=== PATIENT | female | born 1965 | race Caucasian/White ===

== ENCOUNTER 2016-08-13 20:51 | Emergency (ER) | payer OTHER ==
--- NOTE | 2016-08-13 21:00 | PDOC ---
History of Present Illness - General History Source: Patient Exam Limitations: No Limitations - History of Present Illness Initial Comments: 08/13/16 21:15 A portion of this note was documented by scribe services under my direction. I have reviewed the details of the note, within reason, and agree with the documentation. The case summary and management plan written by me. Procedure note laceration repair Laceration anesthetized with 1% lidocaine no epinephrine via local infiltration into the wound margins approximately 2 mL used Laceration cleaned with saline and closed with 3 sutures of 5-0 Ethilon. Sterile dressing and bacitracin appliied. Patient became a little vasovagal at the end of the procedure so she was laying down with improvement of her symptoms. Patient discharged home with her . Patient given wound care instructions, laceration instructions and has a doctor to follow-up with for suture removal <Saul Mendoza I - Last Filed: 08/13/16 21:18> - General History Source: Patient Exam Limitations: No Limitations - History of Present Illness Initial Comments: 08/13/16 21:21 The patient is a 51 year old female presenting with her , who presents to the emergency department with a left thumb laceration. She reports that she was opening a can of corn when she cut herself on the edge of the can. She reports minimal pain from the area. She denies any other kind of injuries. She states that her last tetanus shot was 2 years ago. The patient denies any other kind of injuries. PAST MEDICAL HISTORY: no significant history PAST SURGICAL HISTORY: no significant history FAMILY HISTORY: no pertinent history SOCIAL HISTORY: Pt lives with family and is employed. MEDICATIONS: reviewed ALLERGIES: As per nursing notes <Reji Roberson - Last Filed: 08/13/16 21:23> - General Chief Complaint: Laceration Stated Complaint: LH 1ST FINGER LAC Time Seen by Provider: 08/13/16 21:00 Past History - Past Medical History Other medical history: denies - Psycho/Social/Smoking Cessation Hx Anxiety: No Suicidal Ideation: No Smoking History: Never smoked Hx Alcohol Use: (occasional) <Saul Mendoza I - Last Filed: 08/13/16 21:18> <eRji Roberson - Last Filed: 08/13/16 21:23> - Past Medical History Allergies/Adverse Reactions: Allergies Allergy/AdvReac Type Severity Reaction Status Date / Time No Known Allergies Allergy Unverified 08/13/16 20:53 Home Medications: Ambulatory Orders NK [No Known Home Medication] 08/13/16 Review of Systems - Review of Systems Able to Perform ROS?: Yes Comments:: 08/13/16 21:21 General: No fevers or chills, no weakness, no weight loss HEENT: No change in vision. No sore throat,. No ear pain CardioVascular: No chest pain or shortness of breath Respiratory:No cough, or wheezing. Gastrointestinal: no nausea, vomiting, diarrhea or constipation, No rectal bleeding Genitourinary: No dysuria, hematuria, or frequency Musculoskeletal: No joint or muscle pain or swelling Extremities: +Left thumb laceration. Neurologic: No headache, vertigo, dizziness or loss of consciousness Psychiatric: nor depression Skin: No rashes or easy bruising Endocrine: no increased thirst or abnormal weight change Allergic: no skin or latex allergy All other systems reviewed and normal <Reji Roberson - Last Filed: 08/13/16 21:23> *Physical Exam - Vital Signs Last Vital Signs Temp Pulse Resp BP Pulse Ox 98.1 F 76 18 137/81 100 08/13/16 20:51 08/13/16 20:51 08/13/16 20:51 08/13/16 20:51 08/13/16 20:51 <Saul Mendoza I - Last Filed: 08/13/16 21:18> - Vital Signs Last Vital Signs Temp Pulse Resp BP Pulse Ox 98.1 F 76 18 137/81 100 08/13/16 20:51 08/13/16 20:51 08/13/16 20:51 08/13/16 20:51 08/13/16 20:51 - Physical Exam Comments: 08/13/16 21:20 GENERAL: The patient is awake, alert, and fully oriented, in no acute distress. HEAD: Normal with no signs of trauma. EXTREMITIES: +Left thumb phalange superficial 1 cm laceration on the dorsum surface. Normal range of motion, no edema. NEUROLOGICAL: Normal speech, normal gait. PSYCH: Normal mood, normal affect. SKIN: Warm, Dry, normal turgor, no rashes or lesions noted. <Reji Roberson - Last Filed: 08/13/16 21:23> *DC/Admit/Observation/Transfer <Saul Mendoza I - Last Filed: 08/13/16 21:18> - Attestations Scribe Attestion: 08/13/16 21:20 Documentation prepared by Reji Roberson, acting as medical coder for Saul Mendoza MD <Reji Roberson - Last Filed: 08/13/16 21:23> Diagnosis at time of Disposition: Laceration of left thumb Qualifiers: Encounter type: initial encounter Qualified Code(s): S61.012A - Laceration without foreign body of left thumb without damage to nail, initial encounter - Discharge Dispostion Disposition: HOME Condition at time of disposition: Stable - Referrals Referrals: Bang Conrad [Primary Care Provider] - - Patient Instructions Printed Discharge Instructions: DI for Laceration Repair Additional Instructions: Change the dressing once a day clean and the laceration with a little peroxide and reapply some bacitracin do this for the next 3-4 days. After that you can leave it open as long as it is in a clean environment. Suture removal in one week U can return to the emergency room or see her primary care for suture removal. Return to the emergency department immediately with ANY new, persistent or worsening symptoms. Continue any medications as previously prescribed by your physician. You should follow up with your primary doctor as soon as possible regarding today's emergency department visit. . Please make sure your doctor reviews the results of your emergency evaluation. Thank you for coming to the Emergency Department today for your care. It was a pleasure to see you today. Please note that your evaluation is INCOMPLETE until you follow-up with your doctor.
[2016-08-13 21:04] VITALS: BP 137/81; PULSE 76; TEMP 98.1; BMI 22.3
== END 2016-08-13 21:22 | disposition home or self-care (01) ==
LOC: FER 20:51
PROC: 0HQGXZZ Repair Left Hand Skin, External Approach (ICD-10-PCS; principal; 2016-08-13)
DX: S61.012A Laceration without foreign body of left thumb without damage to nail, initial encounter (principal); W26.8XXA Contact with other sharp object(s), not elsewhere classified, initial encounter; Y93.G3 Activity, cooking and baking; Y92.000 Kitchen of unspecified non-institutional (private) residence as the place of occurrence of the external cause
CPT/HCPCS: 99283-25

== ENCOUNTER 2022-04-08 05:57 | Emergency (ER) | payer OTHER ==
[2022-04-08 06:05] VITALS: BP 107/75; PULSE 97; RESP 16; TEMP 98.7; BMI 25.7
[2022-04-08] MEDS ORDERED: ONDANSETRON 4 MG/2 ML VIAL IVPB ONE (06:05)
[2022-04-08] MEDS ORDERED: SODIUM CHLORIDE 1,000 ML IV ONE (06:05)
[2022-04-08] MEDS ORDERED: ONDANSETRON 4 MG/2 ML VIAL ONE (06:20)
[2022-04-08] MEDS ORDERED: FAMOTIDINE 20 MG/50 ML IVPB 20 MG/50 ML MG IVPB ONE ×2 (06:36→06:47)
[2022-04-08 07:25] LABS: ALBUMIN 3.5 g/dl (3.4-5.0); CALCIUM 8.6 mg/dL (8.5-10.1)
[2022-04-08 07:29] LABS: CREATININE 0.7 mg/dL (0.55-1.3)
[2022-04-08 07:30] LABS: BILIRUBIN,TOTAL 0.4 mg/dL (0.2-1); TOT PROT 6.5 g/dl (6.4-8.2)
[2022-04-08 07:35] LABS: HEMATOCRIT 45.4 % (32.4-45.2); HEMOGLOBIN 15.1 GM/dL (10.7-15.3); MCHC 33.3 g/dl (32.0-36.0); MEAN PLT VOLUME 9.2 fl (7.5-11.1); PLATELET COUNT 250 10^3/uL (134-434); RBC 5.21 M/mm3 (3.60-5.2); RDW 13.7 % (11.6-15.6); WHITE BLOOD COUNT 10.2 K/mm3 (4.0-10.0)
== END 2022-04-08 08:25 | disposition home or self-care (01) ==
LOC: FER 05:57
PROC: 3E033GC Introduction of Other Therapeutic Substance into Peripheral Vein, Percutaneous Approach (ICD-10-PCS; principal; 2022-04-08)
DX: R11.2 Nausea with vomiting, unspecified (principal); R19.7 Diarrhea, unspecified
CPT/HCPCS: 36415; 80053; 83690; 85027; 99284-25

== ENCOUNTER 2023-08-26 20:45 | Emergency (ER) | payer OTHER ==
[2023-08-26 21:00] VITALS: BP 102/64; PULSE 74; RESP 15; BMI 23.5
== END 2023-08-26 21:35 | disposition home or self-care (01) ==
LOC: FER 20:45
DX: S61.211A Laceration without foreign body of left index finger without damage to nail, initial encounter (principal); W26.8XXA Contact with other sharp object(s), not elsewhere classified, initial encounter
CPT/HCPCS: 99282-25

== ENCOUNTER 2023-11-04 09:04 | Emergency (ER) | payer OTHER ==
[2023-11-04 09:15] VITALS: RESP 15; BMI 22.6
[2023-11-04] MEDS ORDERED: FAMOTIDINE 20 MG/50 ML IVPB 50 ML IVPB ONE (09:22)
[2023-11-04] MEDS: ACETAMINOPHEN 1000 MG/100 ML BAG IVPB ONE (09:30)
[2023-11-04] MEDS: SODIUM CHLORIDE 0.9% 1000 ML INFUS.BAG IV ONE (09:30)
[2023-11-04] MEDS ORDERED: ONDANSETRON 4 MG/2 ML VIAL ONE (09:39)
[2023-11-04] MEDS ORDERED: ACETAMINOPHEN INJECTION 100 ML IVPB ONE (09:40)
[2023-11-04] MEDS: ONDANSETRON 4 MG/2 ML VIAL IVPUSH ONE (09:45)
[2023-11-04 09:54] LABS: HEMATOCRIT 50.7 % (32.4-45.2); HEMOGLOBIN 16.8 G/dL (10.7-15.3); MCH 29.3 pg (25.7-33.7); MCHC 33.1 g/dl (32.0-36.0); MEAN CELL VOLUME 88.6 fl (80-96); MEAN PLT VOLUME 8.6 fl (7.5-11.1); PLATELET COUNT 268.4 10^3/uL (134-434); RBC 5.72 10^6/uL (3.60-5.2); RDW 13.9 % (11.6-15.6); WHITE BLOOD COUNT 7.6 10^3/uL (4.0-10.8)
[2023-11-04 10:01] LABS: ALBUMIN 4.6 g/dl (3.4-5.0); ALK PHOS 59 U/L (45-117); ANION GAP 9 mmol/L (4-13); BILIRUBIN,TOTAL 0.6 mg/dl (0.2-1); CALCIUM 8.5 mg/dl (8.5-10.1); CHLORIDE 106 mmol/L (98-107); CO2 23 mmol/L (21-32); CREATININE 0.7 mg/dl (0.6-1.3); GLUCOSE,RANDOM 111 mg/dl (74-106); MAGNESIUM 2.3 mg/dL (1.8-2.4); POTASSIUM 3.5 mmol/L (3.5-5.1); SGOT/AST 13 U/L (15-37); SGPT/ALT 14 U/L (7-52); SODIUM 138 mmol/L (136-145); TOT PROT 7.1 g/dl (6.4-8.2)
[2023-11-04 10:12] LABS: PLATELET ESTIMATE ADEQUATE
[2023-11-04] MEDS ORDERED: cefTRIAXone SODIUM 1 GM VIAL ONE (10:45)
[2023-11-04] MEDS ORDERED: FAMOTIDINE 20 MG/50 ML IVPB 20 MG/50 ML MG IVPB ONE (10:45)
[2023-11-04] MEDS: FAMOTIDINE 20 MG/50 ML IVPB 20 MG/50 ML MG IVPB ONE (10:50)
[2023-11-04] MEDS: CEFTRIAXONE 1 GM in DEXTROSE 5%-WATER - 100 ML IVPB ONE (11:05)
[2023-11-04 11:52] VITALS: BP 109/74; PULSE 82; TEMP 97.7
== END 2023-11-04 13:06 | disposition home or self-care (01) ==
LOC: FER 09:04
PROC: 3E03329 Introduction of Other Anti-infective into Peripheral Vein, Percutaneous Approach (ICD-10-PCS; principal; 2023-11-04)
PROC: 3E033GC Introduction of Other Therapeutic Substance into Peripheral Vein, Percutaneous Approach (ICD-10-PCS; 2023-11-04)
PROC: 3E033NZ Introduction of Analgesics, Hypnotics, Sedatives into Peripheral Vein, Percutaneous Approach (ICD-10-PCS; 2023-11-04)
PROC: 3E033GC Introduction of Other Therapeutic Substance into Peripheral Vein, Percutaneous Approach (ICD-10-PCS; 2023-11-04)
DX: N39.0 Urinary tract infection, site not specified (principal); R11.2 Nausea with vomiting, unspecified; R19.7 Diarrhea, unspecified; R30.0 Dysuria; R10.31 Right lower quadrant pain; R10.32 Left lower quadrant pain; Z20.822 Contact with and (suspected) exposure to COVID-19
CPT/HCPCS: 0241U-QW; 36415; 71045-TC-FY; 74177-TC; 80053; 81003; 81015; 83735; 84484; 85027; 87077; 87086; 93005; 99285-25; J0131; Q9967